=== PATIENT | female | born 1960 | race Hispanic/Latino ===

== ENCOUNTER 2021-08-20 07:11 | Inpatient (IN) | payer MEDICAID ==
[~2021-08-20] VITALS: Ht 165.1 cm; Wt 102.5 kg
[~2021-08-20 07:11] MED LIST: FAMO-136 PO; MAG-55 PO
[2021-08-20 07:31] LABS: BASOPHILS % (AUTO) 0.2 % (0.0-5.0); HEMATOCRIT 38.2 % (36-48); LYMPHOCYTES % (AUTO) 12.4 % (21.0-51.0); MEAN CORPUSCULAR HEMOGLOBIN 27.4 pg (27.0-33.0); MEAN CORPUSCULAR HGB CONC 30.9 g/dL (32.0-36.0); MEAN CORPUSCULAR VOLUME 88.6 fL (79-99); MONOCYTES % (AUTO) 2.1 % (3.0-13.0); NEUTROPHILS % (AUTO) 84.1 % (40.0-77.0); PLATELET COUNT (AUTO) 176 K/uL (130-400); RED BLOOD CELL COUNT(AUTO) 4.31 MIL/uL (4.00-5.50); RED CELL DISTRIBUTION WIDTH 14.3 % (11.0-15.5); WHITE BLOOD COUNT (AUTO) 9.8 K/uL (4.8-10.8)
[2021-08-20 08:04] LABS: ALBUMIN 3.3 g/dL (3.5-5.0); BILIRUBIN,TOTAL 0.5 mg/dL (0.2-1.0); CREATININE 0.9 mg/dL (0.5-1.5); POTASSIUM 4.7 mmol/L (3.5-5.1); TOTAL PROTEIN, SERUM 8.4 g/dL (6.0-8.3)
[2021-08-20] MEDS ORDERED: PANTOPRAZOLE 40 MG/VIAL ONE (09:32)
[2021-08-20] MEDS ORDERED: 0.9%NACL 1000ML 1,000 ML IV ONE ×2 (09:33→10:30)
[2021-08-20 09:38] LABS: AMPHET/METH SCREEN,URINE NEGATIVE (NEGATIVE); APPEARANCE,URINE Cloudy (CLEAR); BARBITURATE SCREEN, URINE NEGATIVE (NEGATIVE); BENZODIAZEPINES SCREEN,URINE NEGATIVE (NEGATIVE); BILIRUBIN,URINE Negative (NEGATIVE); CANNABINOID SCREEN,URINE NEGATIVE (NEGATIVE); COCAINE SCREEN,URINE NEGATIVE (NEGATIVE); COLOR,URINE Yellow (YELLOW); GLUCOSE, URINE (UA) TRACE mg/dL (NEGATIVE); KETONES,URINE 15 mg/dL (NEGATIVE); LEUKOCYTE ESTERASE ,URINE Trace (NEGATIVE); NITRATE,URINE Negative (NEGATIVE); OCCULT BLOOD,URINE Moderate (NEGATIVE); OPIATE SCREEN,URINE NEGATIVE (NEGATIVE); PH,URINE 5.5 (5.0-8.0); PHENCYCLIDINE SCREEN,URINE NEGATIVE (NEGATIVE); PROTEIN,URINE Negative (NEGATIVE)
[2021-08-20 09:39] LABS: RBC,URINE 0-1 /HPF (0-1); WBC,URINE 0-1 /HPF (0-1)
[2021-08-20 09:40] LABS: BACTERIA,URINE Rare /HPF (None Seen); MUCUS,URINE Rare LPF (None Seen); SQUAMOUS EPITHELIAL CELL,UR Few /HPF (0-2)
[2021-08-20] MEDS ORDERED: PANTOPRAZOLE 40 MG/VIAL IVP SCH ×2 (10:00→21:00)
[2021-08-20] MEDS ORDERED: LIDOCAINE HCL 2% VISCOUS 15 ML UDCUP PO SCH (11:30)
[2021-08-20] MEDS ORDERED: MAG/ALUM/SIMETH 30 ML UDCUP PO SCH (11:30)
[2021-08-20] MEDS ORDERED: DICYCLOMINE HCL 10 MG/5 ML ML PO SCH (11:30)
[2021-08-20 13:11] LABS: HEMOGLOBIN A1C 6.8 % (4.0-6.0)
[2021-08-20] MEDS ORDERED: ONDANSETRON 4MG INJ ONE (13:14)
[2021-08-20] MEDS: LACTATED RINGERS 1000ML 1,000 ML IV SCH ×2 (13:15→22:05)
[2021-08-20 13:26] LABS: CRP QUANTITATIVE 12.1 mg/L (0.00-9.0)
[2021-08-20] MEDS: PANTOPRAZOLE 40 MG/VIAL IVP SCH ×2 (15:00→20:42)
[2021-08-20] MEDS ORDERED: MORPHINE 2 MG SYG IVP PRN (15:30)
[2021-08-20] MEDS ORDERED: KETOROLAC 15MG/ML VIAL (15MG/ML) ONE (15:32)
[2021-08-20 16:10] LABS: ALBUMIN 2.8 g/dL (3.5-5.0); BILIRUBIN,TOTAL 0.4 mg/dL (0.2-1.0); CREATININE 0.7 mg/dL (0.5-1.5); MAGNESIUM 1.8 mg/dL (1.80-2.40); POTASSIUM 4.1 mmol/L (3.5-5.1); TOTAL PROTEIN, SERUM 7.3 g/dL (6.0-8.3)
[2021-08-20] MEDS: CEFTRIAXONE 1G VIAL IVP SCH (16:31)
[2021-08-20] MEDS ORDERED: PIOG30TA70 PO (17:46)
[2021-08-20] MEDS ORDERED: SPIR50TA5 PO (17:46)
[2021-08-20] MEDS ORDERED: LISI10TA24 PO (17:46)
[2021-08-20] MEDS ORDERED: METF-446 PO (17:46)
[2021-08-20 20:35] VITALS: BP 130/67
[2021-08-20 23:13] VITALS: BP 120/62
[2021-08-20] MEDS: KETOROLAC 15MG/ML VIAL (15MG/ML) IV PRN (23:26)
[2021-08-21 04:22] VITALS: BP 127/66
[2021-08-21 06:44] LABS: BASOPHILS % (AUTO) 0.2 % (0.0-5.0); HEMATOCRIT 35.8 % (36-48); LYMPHOCYTES % (AUTO) 15.7 % (21.0-51.0); MEAN CORPUSCULAR HEMOGLOBIN 28.1 pg (27.0-33.0); MEAN CORPUSCULAR HGB CONC 31.3 g/dL (32.0-36.0); MEAN CORPUSCULAR VOLUME 89.7 fL (79-99); MONOCYTES % (AUTO) 3.5 % (3.0-13.0); NEUTROPHILS % (AUTO) 79.3 % (40.0-77.0); PLATELET COUNT (AUTO) 168 K/uL (130-400); RED BLOOD CELL COUNT(AUTO) 3.99 MIL/uL (4.00-5.50); RED CELL DISTRIBUTION WIDTH 14.3 % (11.0-15.5); WHITE BLOOD COUNT (AUTO) 8.2 K/uL (4.8-10.8)
[2021-08-21 06:51] LABS: ALBUMIN 2.8 g/dL (3.5-5.0); BILIRUBIN,TOTAL 0.5 mg/dL (0.2-1.0); CREATININE 0.8 mg/dL (0.5-1.5); POTASSIUM 4.1 mmol/L (3.5-5.1); TOTAL PROTEIN, SERUM 7.3 g/dL (6.0-8.3)
[2021-08-21 08:00] VITALS: BP 143/59
[2021-08-21] MEDS: ONDANSETRON 4MG INJ IVP PRN (08:14)
[2021-08-21] MEDS: PANTOPRAZOLE 40 MG/VIAL IVP SCH ×2 (08:14→20:47)
[2021-08-21] MEDS: LACTATED RINGERS 1000ML 1,000 ML IV SCH ×2 (08:30→18:30)
[2021-08-21 12:00] VITALS: BP 143/66
[2021-08-21 16:00] VITALS: BP 153/58
[2021-08-21] MEDS: CEFTRIAXONE 1G VIAL IVP SCH (16:50)
[2021-08-21] MEDS: METOCLOPRAMIDE 10 MG/2 ML VIAL IVP SCH (16:51)
[2021-08-21 20:00] VITALS: BP 133/60
[2021-08-22] VITALS (7 sets, daily range): BP systolic 99–139; BP diastolic 42–64
[2021-08-22] MEDS: KETOROLAC 15MG/ML VIAL (15MG/ML) IV PRN ×2 (01:27→07:45)
[2021-08-22] MEDS: ONDANSETRON 4MG INJ IVP PRN (02:14)
[2021-08-22] MEDS: LACTATED RINGERS 1000ML 1,000 ML IV SCH ×2 (02:50→14:30)
[2021-08-22] MEDS: METOCLOPRAMIDE 10 MG/2 ML VIAL IVP SCH ×3 (06:38→17:03)
[2021-08-22] MEDS: PANTOPRAZOLE 40 MG/VIAL IVP SCH ×2 (08:35→19:42)
[2021-08-22 10:22] LABS: BASOPHILS % (AUTO) 0.2 % (0.0-5.0); EOSINOPHILS % (AUTO) 0.2 % (0.0-8.0); HEMATOCRIT 35.8 % (36-48); LYMPHOCYTES % (AUTO) 20.4 % (21.0-51.0); MEAN CORPUSCULAR HEMOGLOBIN 27.8 pg (27.0-33.0); MEAN CORPUSCULAR HGB CONC 31.6 g/dL (32.0-36.0); MONOCYTES % (AUTO) 4.9 % (3.0-13.0); NEUTROPHILS % (AUTO) 73.1 % (40.0-77.0); PLATELET COUNT (AUTO) 153 K/uL (130-400); RED BLOOD CELL COUNT(AUTO) 4.07 MIL/uL (4.00-5.50); RED CELL DISTRIBUTION WIDTH 14.1 % (11.0-15.5); WHITE BLOOD COUNT (AUTO) 8.6 K/uL (4.8-10.8)
[2021-08-22 10:34] LABS: CREATININE 0.9 mg/dL (0.5-1.5); POTASSIUM 4.2 mmol/L (3.5-5.1)
[2021-08-22 10:39] LABS: ALBUMIN 2.9 g/dL (3.5-5.0); BILIRUBIN,TOTAL 0.4 mg/dL (0.2-1.0); TOTAL PROTEIN, SERUM 7.5 g/dL (6.0-8.3)
[2021-08-22] MEDS: PIOGLITAZONE 30MG TAB PO SCH (10:42)
[2021-08-22] MEDS: LISINOPRIL 10 MG TABLET PO SCH (13:13)
[2021-08-22] MEDS: SPIRONOLACTONE 25 MG TAB PO SCH ×2 (13:14→19:42)
[2021-08-22] MEDS ORDERED: POLYETHYLENE GLYCOL 3350 17 GM POWD.PACK PO ONE (16:20)
[2021-08-22] MEDS: CEFTRIAXONE 1G VIAL IVP SCH (17:02)
[2021-08-23] MEDS: LACTATED RINGERS 1000ML 1,000 ML IV SCH (00:14)
[2021-08-23 04:00] VITALS: BP 103/41
[2021-08-23 04:39] LABS: BASOPHILS % (AUTO) 0.6 % (0.0-5.0); EOSINOPHILS % (AUTO) 0.6 % (0.0-8.0); HEMATOCRIT 35.4 % (36-48); LYMPHOCYTES % (AUTO) 25.6 % (21.0-51.0); MEAN CORPUSCULAR HEMOGLOBIN 28.1 pg (27.0-33.0); MEAN CORPUSCULAR HGB CONC 31.4 g/dL (32.0-36.0); MEAN CORPUSCULAR VOLUME 89.6 fL (79-99); MONOCYTES % (AUTO) 5.7 % (3.0-13.0); NEUTROPHILS % (AUTO) 66.3 % (40.0-77.0); PLATELET COUNT (AUTO) 141 K/uL (130-400); RED BLOOD CELL COUNT(AUTO) 3.95 MIL/uL (4.00-5.50); RED CELL DISTRIBUTION WIDTH 14.4 % (11.0-15.5); WHITE BLOOD COUNT (AUTO) 6.8 K/uL (4.8-10.8)
[2021-08-23 04:54] LABS: ALBUMIN 2.7 g/dL (3.5-5.0); BILIRUBIN,TOTAL 0.6 mg/dL (0.2-1.0); CREATININE 0.7 mg/dL (0.5-1.5); POTASSIUM 3.8 mmol/L (3.5-5.1); TOTAL PROTEIN, SERUM 7.1 g/dL (6.0-8.3)
[2021-08-23] MEDS: METOCLOPRAMIDE 10 MG/2 ML VIAL IVP SCH (06:06)
[2021-08-23 07:46] VITALS: BP 98/53
[2021-08-23] MEDS: LISINOPRIL 10 MG TABLET PO SCH (09:00)
[2021-08-23] MEDS ORDERED: POLYETHYLENE GLYCOL 3350 17 GM POWD.PACK PO SCH (09:00)
[2021-08-23] MEDS: PIOGLITAZONE 30MG TAB PO SCH (09:00)
[2021-08-23] MEDS: PANTOPRAZOLE 40 MG/VIAL IVP SCH (09:18)
[2021-08-23] MEDS ORDERED: PANT40TA PO (10:49)
[2021-08-23] MEDS ORDERED: ONDA4TAB10 PO (10:49)
[2021-08-23] MEDS ORDERED: METOCLOPRAMIDE 5 MG TABLET PO SCH (11:30)
[2021-08-23 12:00] VITALS: BP 128/67
== END 2021-08-23 16:00 | disposition home or self-care (01) | DRG 48 ==
LOC: EDH 07:11 → EDHIP 07:12 → OBSVTOIN 07:12 → EDHIP 12:17 → UNDOADMOB 12:17 → 3DH 20:39 → EDHIP 20:39
PROVIDERS: ADMIT Hospitalist; ATTEND Hospitalist
DX: E11.43 Type 2 diabetes mellitus with diabetic autonomic (poly)neuropathy (principal); M62.82 Rhabdomyolysis; K42.9 Umbilical hernia without obstruction or gangrene; K31.84 Gastroparesis; K52.9 Noninfective gastroenteritis and colitis, unspecified; E11.65 Type 2 diabetes mellitus with hyperglycemia; E78.00 Pure hypercholesterolemia, unspecified; R10.84 Generalized abdominal pain; Z20.822 Contact with and (suspected) exposure to COVID-19; I10 Essential (primary) hypertension; E86.0 Dehydration; E86.1 Hypovolemia; E66.9 Obesity, unspecified; Z68.37 Body mass index [BMI] 37.0-37.9, adult; Z90.49 Acquired absence of other specified parts of digestive tract; Z82.0 Family history of epilepsy and other diseases of the nervous system
CPT/HCPCS: 36415; 70450; 71045; 74018; 74176; 80053; 80305; 81001; 82150; 82550; 82948; 83036; 83690; 83735; 83874; 84145; 84443; 84484; 85025; 85651; 86140; 87486; 87581; 87633; 87635; 87798; 87804; 93005; 96361; 96374; 96375; C9113; C9803; G0378; J0696; J1885; J2270; J2405; J2765; J7030; J7120

== ENCOUNTER 2021-08-30 14:37 | Emergency (ER) | payer MEDICAID ==
[~2021-08-30] VITALS: Ht 160 cm; Wt 93.4 kg
[~2021-08-30 14:37] MED LIST changes: +LISI10TA24 PO; +METF-446 PO; +ONDA4TAB10 PO; +PANT40TA PO; +PIOG30TA70 PO; +SPIR50TA5 PO
[2021-08-30 15:54] LABS: BASOPHILS % (AUTO) 0.3 % (0.0-5.0); HEMATOCRIT 39.8 % (36-48); LYMPHOCYTES % (AUTO) 6.4 % (21.0-51.0); MEAN CORPUSCULAR HEMOGLOBIN 27.7 pg (27.0-33.0); MEAN CORPUSCULAR HGB CONC 31.4 g/dL (32.0-36.0); MEAN CORPUSCULAR VOLUME 88.1 fL (79-99); MONOCYTES % (AUTO) 2.9 % (3.0-13.0); NEUTROPHILS % (AUTO) 89.6 % (40.0-77.0); PLATELET COUNT (AUTO) 183 K/uL (130-400); RED BLOOD CELL COUNT(AUTO) 4.52 MIL/uL (4.00-5.50); RED CELL DISTRIBUTION WIDTH 14.2 % (11.0-15.5); WHITE BLOOD COUNT (AUTO) 6.5 K/uL (4.8-10.8)
[2021-08-30 16:26] LABS: CREATININE 0.8 mg/dL (0.5-1.5); POTASSIUM 4.6 mmol/L (3.5-5.1)
[2021-08-30 16:33] LABS: ALBUMIN 3.5 g/dL (3.5-5.0); BILIRUBIN,TOTAL 0.7 mg/dL (0.2-1.0); TOTAL PROTEIN, SERUM 8.5 g/dL (6.0-8.3)
[2021-08-30] MEDS ORDERED: PANTOPRAZOLE 40 MG/VIAL ONE (16:57)
[2021-08-30] MEDS ORDERED: KETOROLAC 15MG/ML VIAL (15MG/ML) ONE (16:57)
[2021-08-30] MEDS ORDERED: KETOROLAC 15MG/ML VIAL (15MG/ML) IM ONE (17:00)
[2021-08-30] MEDS ORDERED: PANTOPRAZOLE 40 MG/VIAL IVP ONE (17:00)
[2021-08-30 17:30] LABS: APPEARANCE,URINE Turbid (CLEAR); BILIRUBIN,URINE Negative (NEGATIVE); COLOR,URINE Yellow (YELLOW); GLUCOSE, URINE (UA) TRACE mg/dL (NEGATIVE); KETONES,URINE >=80 mg/dL (NEGATIVE); LEUKOCYTE ESTERASE ,URINE Trace (NEGATIVE); NITRATE,URINE Negative (NEGATIVE); OCCULT BLOOD,URINE Small (NEGATIVE); PROTEIN,URINE POS 1+ mg/dL (NEGATIVE)
[2021-08-30 17:34] LABS: AMORPHOUS SEDIMENT,UR Many /LPF (None Seen); BACTERIA,URINE Few /HPF (None Seen); RBC,URINE 0-1 /HPF (0-1); SQUAMOUS EPITHELIAL CELL,UR Rare /HPF (0-2)
[2021-08-30] MEDS ORDERED: ONDANSETRON 4MG INJ ONE (17:43)
[2021-08-30] MEDS ORDERED: ONDANSETRON 4MG INJ IVP ONE (18:00)
[2021-08-30] MEDS ORDERED: 0.9%NACL 1000ML 1,000 ML IV ONE (18:00)
[2021-08-30] MEDS ORDERED: IOHEXOL-350 75 ML VIAL IV ONE (18:29)
[2021-08-30 23:23] VITALS: BP 160/68
== END 2021-08-30 23:46 | disposition home or self-care (01) ==
LOC: EDH 14:37
DX: K21.9 Gastro-esophageal reflux disease without esophagitis (principal); Z90.49 Acquired absence of other specified parts of digestive tract; E11.9 Type 2 diabetes mellitus without complications; I10 Essential (primary) hypertension; Z79.84 Long term (current) use of oral hypoglycemic drugs; Z79.899 Other long term (current) drug therapy; Z79.1 Long term (current) use of non-steroidal anti-inflammatories (NSAID)
CPT/HCPCS: 36415; 74177; 80053; 81001; 82150; 82948; 83690; 85025; 87088; 96361; 96372; 96374; 96375; 99285; J1885; J2405; J3490; J7030; S0164; C9113; Q9967